=== PATIENT | male | born 1965 | race African-American/Black ===

== ENCOUNTER 2022-12-29 10:22 | Inpatient (IN) | payer OTHER ==
[2022-12-29 10:42] VITALS: BMI 18.9
[2022-12-29] MEDS ORDERED: MAGNESIUM HYDROX 2400MG/30ML ORAL SUSPENSION 30 ML CUP PO PRN (11:13)
[2022-12-29] MEDS ORDERED: LOPERAMIDE HCL 2 MG CAPSULE PO PRN (11:13)
[2022-12-29] MEDS ORDERED: BENZONATATE 200 MG CAPSULE PO PRN (11:13)
[2022-12-29] MEDS ORDERED: IBUPROFEN 400 MG TABLET (FP) PO PRN (11:13)
[2022-12-29] MEDS ORDERED: AMMONIUM LACTATE 12% LOTION 225 GM BOTTLE TP PRN (11:13)
[2022-12-29] MEDS ORDERED: COLLOIDAL OATMEAL 1 BAR EACH TP PRN (11:13)
[2022-12-29] MEDS ORDERED: NALOXONE HCL (KLOXXADO) 8 MG SPRAY NS PRN (11:13)
[2022-12-29] MEDS ORDERED: guaiFENesin 600 MG TABLET.ER (FP) PO PRN (11:13)
[2022-12-29] MEDS ORDERED: POLYETHYLENE GLYCOL (HEALTHYLAX) 3350 17 GM PACKET PO PRN (11:13)
[2022-12-29] MEDS ORDERED: NALOXONE HCL 0.4 MG/ML VIAL IM PRN (11:13)
[2022-12-29] MEDS ORDERED: MAG HYDROX/AL HYDROX/SIMETH 30 ML UNIT-DOSE CUP PO PRN (11:13)
[2022-12-29] MEDS ORDERED: BENZOCAINE/MENTHOL (CHLORASEPTIC ) LOZENGE MM PRN (11:13)
[2022-12-29] MEDS ORDERED: PRENATAL VITAMINS W/ FOLIC ACID TABLET (FP) PO ONE (11:56)
[2022-12-29] MEDS ORDERED: ACETAMINOPHEN 325 MG TABLET (FP) ONE (11:56)
[2022-12-29] MEDS: ACETAMINOPHEN 325 MG TABLET (FP) PO PRN ×2 (12:01→20:11)
[2022-12-29] MEDS: PRENATAL VITAMINS W/ FOLIC ACID TABLET (FP) PO SCH (12:02)
[2022-12-29] MEDS ORDERED: ALBUTEROL SO4 HFA INHALER IH PRN (13:06)
[2022-12-29 15:53] LABS: HEMATOCRIT 31.5 % (35.4-49); HEMOGLOBIN 10.1 GM/dL (11.7-16.9); MCH 22.7 pg (25.7-33.7); MCHC 31.9 g/dl (32.0-35.9); PLATELET COUNT 231 10^3/uL (134-434); RBC 4.44 M/mm3 (4.00-5.60); RDW 21.3 % (11.9-15.9); WHITE BLOOD COUNT 7.3 K/mm3 (4.0-10.0)
[2022-12-29 15:54] LABS: POTASSIUM 4.2 mmol/L (3.5-5.1)
[2022-12-29 16:03] LABS: ALBUMIN 3.5 g/dl (3.4-5.0); CALCIUM 9.5 mg/dL (8.5-10.1)
[2022-12-29 16:04] LABS: BLOOD UREA NITROGEN 8.3 mg/dL (7-18)
[2022-12-29 16:06] LABS: CREATININE 0.8 mg/dL (0.55-1.3)
[2022-12-29 16:08] LABS: BILIRUBIN,TOTAL 1.8 mg/dL (0.2-1); TOT PROT 9.1 g/dl (6.4-8.2)
[2022-12-29] MEDS: hydrOXYzine PAMOATE 25 MG CAPSULE (FP) PO PRN (20:11)
[2022-12-29 21:35] LABS: PH,URINE 6.5 (5.0-8.0); URINE APPEARANCE CLEAR; URINE BILIRUBIN 1+ (NEGATIVE); URINE COLOR DK YELLOW; URINE GLUCOSE (UA) NEGATIVE (NEGATIVE); URINE KETONE TRACE (NEGATIVE); URINE LEUK ESTERASE NEGATIVE (NEGATIVE); URINE NITRITE NEGATIVE (NEGATIVE); URINE PROTEIN TRACE (NEGATIVE)
[2022-12-29] MEDS: MELATONIN 5 MG TABLETS PO SCH (22:15)
[2022-12-29] MEDS: THIAMINE HCL 100 MG TABLET (FP) PO SCH (22:16)
[2022-12-29] MEDS: IBUPROFEN 600 MG TABLET (FP) PO PRN (22:17)
[2022-12-30] MEDS ORDERED: LORazepam 1 MG TABLET PO PRN (09:35)
[2022-12-30] MEDS ORDERED: LORazepam 0.5 MG TABLET PO SCH (09:45)
[2022-12-30] MEDS ORDERED: FAMOTIDINE 40 MG/5 ML ORAL SUSPENSION PO SCH (10:00)
[2022-12-30] MEDS: amLODIPine BESYLATE 5 MG TABLET (FP) PO SCH (10:10)
[2022-12-30] MEDS: FAMOTIDINE 20 MG TABLET PO SCH (10:10)
[2022-12-30] MEDS: PRENATAL VITAMINS W/ FOLIC ACID TABLET (FP) PO SCH (10:10)
[2022-12-30] MEDS: hydrOXYzine PAMOATE 25 MG CAPSULE (FP) PO PRN (10:12)
[2022-12-30] MEDS ORDERED: LORazepam 2 MG TABLET PO SCH (11:00)
[2022-12-30] MEDS ORDERED: LORazepam 1 MG TABLET PO SCH ×3 (11:00)
[2022-12-30] MEDS: LORazepam 1 MG TABLET PO SCH ×2 (17:28→22:28)
[2022-12-30] MEDS: MELATONIN 5 MG TABLETS PO SCH (22:28)
[2022-12-30] MEDS: THIAMINE HCL 100 MG TABLET (FP) PO SCH (22:28)
[2022-12-31] MEDS ORDERED: LORazepam 1 MG TABLET PO SCH (05:00)
[2022-12-31] MEDS: LORazepam 0.5 MG TABLET PO SCH ×4 (05:45→22:17)
[2022-12-31] MEDS: ACETAMINOPHEN 325 MG TABLET (FP) PO PRN (05:46)
[2022-12-31] MEDS: PRENATAL VITAMINS W/ FOLIC ACID TABLET (FP) PO SCH (09:59)
[2022-12-31] MEDS: hydrOXYzine PAMOATE 25 MG CAPSULE (FP) PO PRN (10:00)
[2022-12-31] MEDS: amLODIPine BESYLATE 5 MG TABLET (FP) PO SCH (10:00)
[2022-12-31] MEDS: FAMOTIDINE 20 MG TABLET PO SCH (10:00)
[2022-12-31] MEDS: THIAMINE HCL 100 MG TABLET (FP) PO SCH (22:17)
[2022-12-31] MEDS: MELATONIN 5 MG TABLETS PO SCH (22:17)
[2023-01-01] MEDS ORDERED: LORazepam 0.5 MG TABLET PO PRN
[2023-01-01] MEDS: LORazepam 0.5 MG TABLET PO SCH ×4 (05:28→22:29)
[2023-01-01] MEDS: IBUPROFEN 600 MG TABLET (FP) PO PRN (05:29)
[2023-01-01] MEDS: PRENATAL VITAMINS W/ FOLIC ACID TABLET (FP) PO SCH (10:10)
[2023-01-01] MEDS: amLODIPine BESYLATE 5 MG TABLET (FP) PO SCH (10:11)
[2023-01-01] MEDS: FAMOTIDINE 20 MG TABLET PO SCH (10:11)
[2023-01-01] MEDS: THIAMINE HCL 100 MG TABLET (FP) PO SCH (22:27)
[2023-01-01] MEDS: MELATONIN 5 MG TABLETS PO SCH (22:27)
[2023-01-02] MEDS ORDERED: LORazepam 0.5 MG TABLET PO ONE (05:00)
[2023-01-02 09:53] VITALS: BP 118/73; PULSE 92; RESP 17; TEMP 97.7
[2023-01-02] MEDS: PRENATAL VITAMINS W/ FOLIC ACID TABLET (FP) PO SCH (10:17)
[2023-01-02] MEDS: amLODIPine BESYLATE 5 MG TABLET (FP) PO SCH (10:17)
[2023-01-02] MEDS: FAMOTIDINE 20 MG TABLET PO SCH (10:17)
== END 2023-01-02 10:48 | disposition home or self-care (01) | DRG 897 ==
LOC: YASAS 10:22 → Y6N 12:26
PROVIDERS: ADMIT Allergy & Immunology; ATTEND Surgery
PROC: HZ2ZZZZ Detoxification Services for Substance Abuse Treatment (ICD-10-PCS; principal; 2022-12-29)
DX: F10.230 Alcohol dependence with withdrawal, uncomplicated (principal); I10 Essential (primary) hypertension; J45.20 Mild intermittent asthma, uncomplicated; K21.9 Gastro-esophageal reflux disease without esophagitis; R16.0 Hepatomegaly, not elsewhere classified
CPT/HCPCS: 36415; 80053; 80305; 81003; 83036; 85027; 86780; 87635; 87811